=== PATIENT | male | born 1950 | race Caucasian/White ===

== ENCOUNTER 2024-06-29 10:27 | Emergency (ER) | payer MEDICARE, SELFPAY ==
[2024-06-29] VITALS (8 sets, daily range): BP systolic 101–140; BP diastolic 61–78; PULSE 75–142; RESP 15–93; TEMP 37.7–38.9; O2SAT 95–99; BMI 29.1
--- NOTE | 2024-06-29 11:14 | EKG_ITS ---
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
--- NOTE | 2024-06-29 11:16 | EDNOTE_ITS ---
ED Chest Pain RME/HPI General Chief Complaint: Chest Pain Stated Complaint: CHEST WALL PAIN Time Seen by Provider: 06/29/24 11:13 Arrival date/time: 06/29/24 10:27 RME / HPI RME / HPI narrative: 74-year-old male patient with significant history of hypertension, CVA, was sent to us from [facility] for evaluation regarding left-sided chest pain. Onset of symptoms for the last 2 days, as sudden onset of left-sided chest pain, described as dull ache, severity moderate. In the triage patient was noted to be febrile, and tachycardic, sepsis alert was initiated right away. Patient denies any abdominal pain denies any cough, denies any other complaints. Patient told me that 2 days ago he had a shot for flu. Related Data Previous Rx's ?Medication ?Instructions ?Recorded atorvastatin 40 mg tablet 40 mg PO QPM #30 tabs 05/05/24 clopidogrel 75 mg tablet 75 mg PO QDAY #30 tabs 05/05/24 lisinopril 10 mg tablet 10 mg PO QDAY #30 tabs 05/05/24 Allergies Allergy/AdvReac Type Severity Reaction Status Date / Time No Known Allergies Allergy Unverified 05/02/24 08:58 Review of Systems Review of Systems Narrative Review of Systems: Review of system reviewed and within normal limits except mentioned in HPI ED Exam Narrative Physical exam: VITAL SIGNS: Reviewed. GENERAL APPEARANCE: Alert and interactive, follows commands, no acute distress, HEAD AND FACE: Non-traumatic. ENT: PERRL, pink conjunctivitis, eyelid no trauma, Mucous membrane moist. NECK: Supple, nontender, no nuchal rigidity. CHEST: No tenderness, no crepitus, no paradoxical movement, no retractions. LUNGS: Clear, well ventilated, symmetric, no rales, no wheezing, no ronchi, no stridor, good breath sounds bilaterally. HEART: Regular rate, regular rhythm, no murmur, no gallops. ABDOMEN: Soft, positive bowel sounds, nondistended, no guarding, nontender, no rebound, no masses, RECTAL: Deferred. GENITAL: Deferred. NEUROLOGICAL: Gross motor function intact sensory function intact, Appropriate for age. MUSCULOSKELETAL: low back nontender, full range of motion. EXTREMITIES: Nontender, full range of motion. SKIN: Color pink, dry, no rash, no lacerations, no abrasions, no contusions. LYMPHATICS: Deferred. Course Quality Measures none Orders Category Date Time Status Bedside COVID-19 Antigen Test NOW Care 06/29/24 11:16 Active Bedside Influenza A&B Antigen Test NOW Care 06/29/24 11:16 Completed Home Companion STAT Care 06/29/24 11:14 Active Continuous Pulse Oximetry STAT Care 06/29/24 11:14 Completed EKG (ED ONLY) *Do not use* NOW Care 06/29/24 11:14 Completed In and Out Catheter X1PRN Care 06/29/24 11:14 Active Insert IV NOW Care 06/29/24 11:14 Active NPO STAT Care 06/29/24 11:14 Active Strict Intake and Output Routine Care 06/29/24 11:14 Ordered EKG (ED Only) Stat Exams 06/29/24 11:14 Draft XR chest 1V Stat Exams 06/29/24 14:17 Completed B-Type Natriuretic Peptide Stat Lab 06/29/24 11:26 Completed Blood Culture (Lab) Stat Lab 06/29/24 11:48 Received CBC Stat Lab 06/29/24 11:26 Completed Comprehensive Metabolic Panel Stat Lab 06/29/24 11:26 Completed LDH (Lactate Dehydrogenase) Stat Lab 06/29/24 11:26 Completed Lactate (Lactic Acid) Stat Lab 06/29/24 11:26 Completed Lipase Stat Lab 06/29/24 11:26 Completed Magnesium Stat Lab 06/29/24 11:26 Completed Partial Thromboplastin Time Stat Lab 06/29/24 11:26 Completed Phosphorous Stat Lab 06/29/24 11:26 Completed Procalcitonin Stat Lab 06/29/24 11:26 Completed Prothrombin Time with INR Stat Lab 06/29/24 11:26 Completed Troponin I Stat Lab 06/29/24 11:26 Completed Troponin I Stat Lab 06/29/24 14:54 Completed Urinalysis Stat Lab 06/29/24 12:19 Completed Urine Culture Stat Lab 06/29/24 12:25 Received Acetaminophen Supp [Tylenol Supp] Med 06/29/24 11:14 Discontinued 650 mg [place] X1 ONE Ondansetron Inj [Zofran Inj] Med 06/29/24 11:15 Discontinued 4 mg IV X1 ONE Sodium Chloride 0.9% 1000 ml [Ns] 1,000 ml Med 06/29/24 11:15 Discontinued IV 999 mls/hr cefTRIAXone/D5w 1gm IV premix [Rocephin/D5w 1gm IV Med 06/29/24 11:16 Discontinued premix] 50 ml IV X1 Oxygen Delivery NOW RT 06/29/24 11:14 Active Vital Signs Vital signs: Vital Signs Temperature 100.1 F 06/29/24 10:32 Pulse Rate 75 06/29/24 10:32 Respiratory Rate 19 06/29/24 10:32 Blood Pressure 101/61 06/29/24 10:32 Pulse Oximetry (%) 97 06/29/24 10:32 Oxygen Delivery Method Room Air 06/29/24 10:32 Chest Pain MDM Narrative MDM Narrative:: 74-year-old male patient with significant history of hypertension, CVA, was sent to us from [facility] for evaluation regarding left-sided chest pain. Onset of symptoms for the last 2 days, as sudden onset of left-sided chest pain, described as dull ache, severity moderate. In the triage patient was noted to be febrile, and tachycardic, sepsis alert was initiated right away. Patient denies any abdominal pain denies any cough, denies any other complaints. Patient told me that 2 days ago he had a shot for flu. Chest x-ray, cardiac workup, urinalysis, all came back unremarkable. Currently patient is not having any chest pain. Patient's fever could be secondary to postvaccination that was done 2 days ago. Patient is not septic Patient data External records reviewed:: None Clinical information provided by:: patient Social determinants that could affect healthcare access:: none Patient has the following chronic illnesses:: CVA, hypertension How is presenting disease/condition affected by chronic disease/condition?: exacerbated by Evaluation data The following diagnostics were reviewed and interpreted by me:: lab results, radiology exam(s) and EKG tracing(s) Lab and/or radiology exams considered but not ordered:: None Interpretation Summary: EKG as interpreted by me showed sinus rhythm, ventricular rate of 88 bpm, WY interval 2 9 MS, no ST segment elevation or depression noted. I personally reviewed and interpreted the x-ray of this patient. There is no acute abnormalities found, no infiltrates no pneumothorax no hemothorax normal chest x-ray. Review of other structures was without significant abnormal findings also. I additionally reviewed the radiologist report and agree with the interpretation. Laboratory workup including troponin all came back normal I repeat the troponin also came back unremarkable also. Medications / Prescriptions Medications or Prescriptions considered but not ordered:: None Medication administrations:: Medication Administration History Discontinued Medications Acetaminophen (Acetaminophen Supp 650 Mg Supp) 650 mg W[place] X1 ONE Stop: 06/29/24 11:15 Last Admin: 06/29/24 11:51 Dose: 650 mg Documented By: DANIEL Sodium Chloride (Ns) 1,000 mls @ 999 mls/hr IV .Q1H1M ONE Stop: 06/29/24 12:15 Last Infusion: 06/29/24 15:24 Dose: Infused Documented By: Admin: 06/29/24 11:50 Dose: 999 mls/hr Documented By: DANIEL Ceftriaxone Sodium/Dextrose (Rocephin/D5w 1gm Iv Premix) 50 mls @ 100 mls/hr IV X1 ONE Stop: 06/29/24 11:45 Last Infusion: 06/29/24 15:24 Dose: Infused Documented By: Admin: 06/29/24 11:49 Dose: 100 mls/hr Documented By: DANIEL Ondansetron HCl (Ondansetron Inj 2 Mg/Ml Inj 2 Ml) 4 mg IV X1 ONE; Protocol Stop: 06/29/24 11:16 Last Admin: 06/29/24 11:51 Dose: 4 mg Documented By: DANIEL Ceftriaxone Iv, Zofran, IV fluids. Tylenol Consultations Consultation(s) initiated? (list below): No Diagnosis Chest Pain Differential Diagnosis: stable angina and chest pain Most likely diagnosis given after review of the tests above:: Fever postvaccination, chest pain Admission Indicated Admission indicated?: not indicated Admission Request Was there a request for admission?: No Disposition Plan Disposition Plan: Discharge Discharge Attestation Discharge Attestation: The patient and all family members were given an opportunity to ask questions and understood the discharge instructions. Discharge instructions specifically effects, indications for sooner follow up or return to the emergency department, and the expected course of current diagnosis. Patient condition: Stable Discharge Plan Plan Patient Disposition: HOME (Self Care) Disposition Comment: Stable Prescriptions/Referrals Prescriptions/Med Rec: No Action clopidogrel 75 mg Tablet 75 mg PO QDAY Qty: 30 0RF atorvastatin 40 mg tablet 40 mg PO QPM Qty: 30 0RF lisinopril 10 mg tablet 10 mg PO QDAY Qty: 30 0RF Referrals: No Primary/Family,Physician [Primary Care Provider] - In 1 week Problem List Clinical Impression: Chest pain, Fever after vaccination Patient/Caregiver Discharge Instructions Discharge Activity: activity as tolerated Education Materials: ED Chest Pain, Noncardiac Additional Instructions: Thank you for the opportunity for serving you today. You are stable for discharged . You are advised to: Follow-up with your PCP in 1 to 2 days Return to ED for worsening of symptoms Increase oral fluids Print Language: Congolese Stand Alone Forms: Marija Award Info., Patient Portal Info Letter PA/BRIAN Supervising Physician PA/BRIAN Supervising Physician: MD Kristi
[2024-06-29 11:42] LABS: Basophils % (Auto) 0 % (0-2.5); Eosinophils # (Auto) 0.1 Thou/mm3 (0.0-0.5); Eosinophils % (Auto) 1 % (0-10); Hematocrit 42.6 % (41.0-53.0); Hemoglobin 14.1 g/dL (13.5-16.0); Immature Granulocytes % (Auto) 0 % (0-0); Immature Granulocytes Auto 0.04 Thou/mm3 (0.00-0.00); Lymphocytes % (Auto) 15 % (10-50); Mean Corpuscular HGB Conc 33.1 g/dl (31.0-37.0); Mean Corpuscular Hemoglobin 29.7 pg (25.0-35.0); Mean Corpuscular Volume 90 fL (80-100); Monocytes # (Auto) 0.9 Thou/mm3 (0.0-0.8); Monocytes % (Auto) 7 % (0-12); Neutrophils # (Auto) 10.2 Thou/mm3 (1.8-7.7); Neutrophils % (Auto) 77 % (37-80); Nucleated Red Blood Cell % 0 /100 WBC (0); Platelet Count 222 Thou/mm3 (140-440); RDW Standard Deviation 44.4 fL (35.1-43.9); Red Blood Count 4.74 Miln/mm3 (4.50-5.90); White Blood Count 13.4 Thou/mm3 (3.8-10.6)
[2024-06-29] MEDS: cefTRIAXone/D5w 1gm IV premix 50 ML IV (11:49)
[2024-06-29] MEDS: SODIUM CHLORIDE 0.9% 1000 ML 1,000 ML 999 ML IV (11:50)
[2024-06-29] MEDS: ACETAMINOPHEN SUPP 650 MG SUPP PR (11:51)
[2024-06-29] MEDS: ONDANSETRON INJ 2 MG/ML INJ 2 ML 4 MG IV (11:51)
[2024-06-29 11:54] LABS: INR 1.1 (0.9-1.3); Partial Thromboplastin Time 21.3 Seconds (22.0-36.0); Prothrombin Time 12.1 Seconds (9.0-12.2)
[2024-06-29 11:57] LABS: B-Type Natriuretic Peptide < 20 pg/mL (0-100)
[2024-06-29 12:07] LABS: Alanine Aminotransferase 50 U/L (10-49); Albumin, Serum 4.7 gm/dL (3.4-4.8); Albumin/Globulin Ratio 1.5 (1.2-2.2); Alkaline Phosphatase 144 U/L (46-116); Anion Gap 7 (7-16); Aspartate Amino Transferase 30 U/L (0-34); BUN/Creatinine Ratio 17 Ratio (12-20); Bilirubin,Total 1.5 mg/dL (0.3-1.2); Blood Urea Nitrogen 15 mg/dL (9-23); Calcium 9.7 mg/dL (8.3-10.6); Calcium (Corrected) 9.7 mg/dL (8.5-10.1); Carbon Dioxide 28.4 mMol/L (20.0-31.0); Chloride 100 mMol/L (98-107); Creatinine (Component) 0.9 mg/dL (0.6-1.3); Estimated Creatinine Clearance 89.8 mL/min (>60); Globulin 3.1 gm/dL (2.3-3.5); Glucose 97 mg/dL (74-106); LDH (Lactate Dehydrogenase) 207 U/L (120-246); Lipase 46 U/L (12-53); Magnesium 1.8 mg/dL (1.6-2.6); Osmolality,Calculated 270 (275-295); Phosphorous 4.2 mg/dL (2.4-5.1); Potassium 4.6 mMol/L (3.4-5.1); Procalcitonin 0.13 ng/ml (0.0-0.49); Sodium 135 mMol/L (136-145); Total Protein 7.8 gm/dL (5.7-8.2); Troponin I < 0.002 ng/mL (0.0-0.045); eGFR > 60 See Note
[2024-06-29 12:52] LABS: Collection Type, Urine Clean Catch
[2024-06-29 13:02] LABS: Bilirubin,Urine Negative (Negative); Blood,Urine Negative (Negative); Clarity,Urine Clear (Clear/Hazy); Color,Urine Lt-Yellow (Lt Yel-Yel); Glucose, Urine Negative (Negative); Ketones,Urine Negative (Negative); Leukocyte Esterase,Urine Negative (Negative); Nitrite,Urine Negative (Negative); PH,Urine 6.5 (5.0-7.0); Protein,Urine Negative (Neg - Trace); RBC,Urine 1 /hpf (0-3); Specific Gravity,Urine 1.015 (1.001-1.035); Squamous Epithelial Cell,Urine < 1 /hpf (0-5); Urobilinogen,Urine Negative mg/dL (0.0-1.0); WBC,Urine < 1 /hpf (0-5)
--- NOTE | 2024-06-29 14:17 | XR_ITS ---
Examination: AP chest single view TECHNIQUE: AP portable upright chest single view Exam date and time: June 29, 2024 1431 hours Comparison May 19, 2018 INDICATIONS: Coughing today. FINDINGS: Mild varus left ventricle No pneumonia or pulmonary edema The osseous structures are intact IMPRESSION: No pneumonia or pulmonary edema
[2024-06-29 16:08] LABS: Troponin I < 0.020 ng/mL (0.0-0.045)
--- NOTE | 2024-06-29 16:40 | PC.NURSE ---
Pt. DC'd. It Desktop Support Technician to set up transport for ptMeron [facility] at [facility] called and aware that pt. will be heading back to facility. Pt A/O x 4. Pt. was ambulatory prior to admit at [facility] for stroke. Pt. now ambulates only a few feet with assistance of walker and rehab staff.
--- NOTE | 2024-06-29 16:46 | PC.CC ---
Jaqueline BALDWIN was consulted by LOREE Kruse for arranging transportation for the patient back to [facility]. ASW arranged transportation via [facility].
--- NOTE | 2024-06-29 17:25 | PC.CC ---
No available transportation available via [facility], Jaqueline BALDWIN made contact with patient's Jessie who reports her nephew can pharmacy picking tech the patient and transport him back to [facility]. ASW provided update to LOREE Kruse.
== END 2024-06-29 18:42 | disposition home or self-care (01) ==
PROVIDERS: Nurse Practitioner Family; Emergency Provider Emergency Medicine
DX: R07.89 Other chest pain (principal); R50.83 Postvaccination fever; I10 Essential (primary) hypertension; Z86.73 Personal history of transient ischemic attack (TIA), and cerebral infarction without residual deficits
CPT/HCPCS: 36415; 71045; 80053; 81001; 83605; 83615; 83690; 83735; 83880; 84100; 84145; 84484; 85025; 85610; 85730; 87040; 87086; 87400; 87811; 93005; 96365; 96366; 99285; J0696; J2405; J7030; A9270